=== PATIENT | female | born 1955 | race Caucasian/White ===

== ENCOUNTER → 2024-05-11 | Day surgery (SDC) | payer MEDICARE ==
[2024-05-08 12:23] LABS: BASOPHILS # (AUTO) 0.1 (0.0-0.1); BASOPHILS % 0.7 % (0.0-1.0); EOSINOPHILS # (AUTO) 0.5 (0.0-0.4); HEMATOCRIT 42.2 % (34.2-44.1); HEMOGLOBIN 13.6 g/dL (12.0-16.0); LYMPHOCYTES # (AUTO) 1.9 (1.0-3.2); LYMPHOCYTES % 27.1 % (18.0-39.1); MEAN CORPUSCULAR HEMOGLOBIN 29.8 pg (28-32); MEAN CORPUSCULAR HGB CONC 32.2 g/dL (31-35); MEAN CORPUSCULAR VOLUME 92.5 fL (81-99); MONOCYTES # (AUTO) 0.5 (0.2-0.8); MONOCYTES % 7.5 % (4.4-11.3); NEUTROPHILS # (AUTO) 3.9 (2.1-6.9); NEUTROPHILS % 57.4 % (38.7-80.0); PLATELET COUNT 199 x10e3/uL (140-360); RED BLOOD COUNT 4.56 x10e6/uL (3.6-5.1); RED CELL DISTRIBUTION WIDTH 12.6 % (11.7-14.4); WHITE BLOOD COUNT 6.82 x10e3/uL (4.8-10.8)
[~2024-05-11] MED LIST: ACETAMINOPHEN-1 EAC4 PO; ACETAMINOPHEN/CODEINE 300MG - 30MG TAB ONE; ASPIRIN81 MG PO; CARVEDILOL12.5 MG PO; DEXAMETHASONE SOD PHOS INJ 4 MG/ML SDV ONE; EPHEDRINE SULFATE INJ 50 MG/ML VIAL ONE; FENTANYL CITRATE/PF 100MCG/2 ML INJ ONE; GLYCOPYRROLATE INJ 0.2 MG/ML VIAL ONE; HYDROCODONE/APAP 7.5MG-325MG 1 EA TAB ONE; LEVOTHYROXINE50 MCG PO; LIDOCAINE HCL 2% LOCAL INJ 5 ML SDV VIAL INJ ONE; LISINOPRIL20 MG PO; MIDAZOLAM HCL 2 MG/2 ML VIAL ONE; NEOSTIGMINE 1 MG/ML 10ML VIAL ONE; ONDANSETRON HCL INJ 2MG/ML 2ML 2 MG/ML VIAL ONE; PRAVASTATIN SOD40 MG PO; PROPOFOL IV EMULSION 10 MG/ML 20 ML VIAL ONE; ROCURONIUM BROMIDE 10 MG/ML 5ML VIAL IV ONE; SEVOFLURANE INHAL SOLN 250 ML PEN BTL ONE; TRANEXAMIC ACID 10 ML ONE; VENTOLIN HFA18 GM INH; XANAX1 MG PO
[2024-05-11] MEDS: LACTATED RINGER'S 1,000 ML ONE (06:04)
[2024-05-11 11:25] VITALS: TEMP 97.5
[2024-05-11] MEDS: FENTANYL CITRATE/PF 100MCG/2 ML INJ ONE (11:41)
[2024-05-11] MEDS: ACETAMINOPHEN/CODEINE 300MG - 30MG TAB PO ONE (12:10)
[2024-05-11 12:35] VITALS: BP 160/88; PULSE 52; RESP 13; O2SAT 99
== END | disposition home or self-care (01) ==
LOC: OR 05:36
PROVIDERS: ATTEND Plastic Surgery
DX: N62 Hypertrophy of breast (principal); D24.1 Benign neoplasm of right breast; N60.01 Solitary cyst of right breast; I10 Essential (primary) hypertension; E78.5 Hyperlipidemia, unspecified; J45.909 Unspecified asthma, uncomplicated; E66.01 Morbid (severe) obesity due to excess calories; M54.50 Low back pain, unspecified; I83.90 Asymptomatic varicose veins of unspecified lower extremity; Z01.810 Encounter for preprocedural cardiovascular examination; Z01.812 Encounter for preprocedural laboratory examination; Z01.818 Encounter for other preprocedural examination; Z79.82 Long term (current) use of aspirin; Z79.899 Other long term (current) drug therapy
CPT/HCPCS: 19318; 36415; 71046; 85025; 88305; 88307; 88342; 93005; J0690; J1100; J2001; J2250; J2405; J2704; J2710; J3010; J7121; 88304